=== PATIENT | male | born 1960 | race Caucasian/White ===

== ENCOUNTER 2016-12-16 22:15 | Inpatient (IN) | payer BC ==
[~2016-12-16] VITALS: Ht 175.3 cm; Wt 112.2 kg
[2016-12-16 22:49] LABS: HEMATOCRIT 43.7 % (38.0-50.0); MCH 31.5 PG (29.0-34.0); MCHC 33.6 G/DL (30.0-36.0); MCV 93.8 FL (86-99); MEAN PLAT.VOLUME 8.8 uM^3 (9.0-12.4); PLATELET COUNT 305 K/uL (156-360); RBC DIS.WIDTH-CV 12.4 % (11.8-14.6); RBC DIS.WIDTH-SD 42.5 % (39-53); RED BLOOD COUNT 4.66 M/uL (4.00-5.50); WHITE BLOOD COUNT 8.5 K/uL (4.1-10.2)
[2016-12-16 22:58] LABS: INTER. NORMALIZED RATIO 1.1; PROTHROMBIN TIME 10.7 (9.2-11.2); PTT 26.7 (25-32)
[2016-12-16 23:00] LABS: CHLORIDE 104 mEq/L (99-109); POTASSIUM 3.7 mEq/L (3.7-5.4); SODIUM 138 mEq/L (136-147)
[2016-12-16 23:01] LABS: GLUCOSE 133 mg/dL (70-99)
[2016-12-16 23:05] LABS: ANION GAP 16 MEQ/L (2-14); GFR ESTIMATE (CALCULATED) > 59 mL/min/
[2016-12-16 23:06] LABS: UREA NITROGEN (BUN) 11 mg/dL (9-23)
[2016-12-16 23:17] LABS: SERUM ETHYL ALCOHOL 159 mg/dL
[2016-12-16 23:22] LABS: TROP-I INTERPRETATION POSITIVE; TROPONIN-I 3.93 ng/mL (0.0-0.30)
[2016-12-17] MEDS ORDERED: TUMS500 MG PO (01:05)
[2016-12-17 02:26] LABS: TROP-I INTERPRETATION POSITIVE; TROPONIN-I 4.25 ng/mL (0.0-0.30)
[2016-12-17 05:56] LABS: HEMATOCRIT 43.8 % (38.0-50.0); MCH 31.7 PG (29.0-34.0); MCHC 33.8 G/DL (30.0-36.0); MCV 93.8 FL (86-99); MEAN PLAT.VOLUME 9.1 uM^3 (9.0-12.4); PLATELET COUNT 319 K/uL (156-360); RBC DIS.WIDTH-CV 12.5 % (11.8-14.6); RBC DIS.WIDTH-SD 43.1 % (39-53); RED BLOOD COUNT 4.67 M/uL (4.00-5.50)
[2016-12-17 05:57] LABS: WHITE BLOOD COUNT 5.5 K/uL (4.1-10.2)
[2016-12-17 18:00] VITALS: BP 133/84
[2016-12-17 18:15] VITALS: BP 125/78
[2016-12-17 19:20] VITALS: BP 130/73
[2016-12-17 20:49] LABS: Estimated Average Glucose 123 mg/dL (70-123); HEMOGLOBIN A1c (GLYCOHEMOGLOB) 5.9 % HGB (Below 5.7)
[2016-12-17 20:52] LABS: HDL CHOLESTEROL 39 MG/DL (Desirable>=40); NON-HDL CHOLESTEROL 195 mg/dL (Desirable<160); TOTAL CHOLESTEROL 234 mg/dL (Desirable<200); TRIGLYCERIDES 463 MG/DL (Normal: <150)
[2016-12-17 20:54] LABS: TROP-I INTERPRETATION POSITIVE; TROPONIN-I 3.21 ng/mL (0.0-0.30)
[2016-12-18 00:10] VITALS: BP 110/63
[2016-12-18 04:15] VITALS: BP 122/63
[2016-12-18 07:04] LABS: HEMATOCRIT 41.1 % (38.0-50.0); MCHC 32.1 G/DL (30.0-36.0); MCV 96.5 FL (86-99); PLATELET COUNT 250 K/uL (156-360); RBC DIS.WIDTH-CV 12.7 % (11.8-14.6); RBC DIS.WIDTH-SD 44.9 % (39-53); RED BLOOD COUNT 4.26 M/uL (4.00-5.50); WHITE BLOOD COUNT 6.6 K/uL (4.1-10.2)
[2016-12-18 07:27] LABS: ANION GAP 9 MEQ/L (2-14); CHLORIDE 106 MEQ/L (99-109); GFR ESTIMATE (CALCULATED) > 59 mL/min/; GLUCOSE 100 mg/dL (70-99); POTASSIUM 4.2 MEQ/L (3.7-5.4); SAMPLE HEMOLYSIS CHECK 0; SAMPLE ICTERIC CHECK 0; SAMPLE LIPEMIA CHECK 0; SODIUM 138 MEQ/L (136-147); TROP-I INTERPRETATION POSITIVE; TROPONIN-I 2.78 ng/mL (0.0-0.30); UREA NITROGEN (BUN) 14 mg/dL (9-23)
[2016-12-18 08:00] VITALS: BP 124/71
[2016-12-18] MEDS ORDERED: ATORVASTATIN CA40 MG PO (11:55)
[2016-12-18] MEDS ORDERED: NITROSTAT0.4 MG SL (11:55)
[2016-12-18] MEDS ORDERED: LOPRESSOR25 MG PO (11:56)
[2016-12-18] MEDS ORDERED: LISINOPRIL2.5 MG PO (11:56)
[2016-12-18 12:18] VITALS: BP 146/96
[2016-12-18] MEDS ORDERED: ATORVASTATIN CA80 MG PO (12:43)
[2016-12-18] MEDS ORDERED: EFFIENT10 MG PO (12:43)
[2016-12-18] MEDS ORDERED: ASPIR-LOW81 MG PO (12:43)
== END 2016-12-18 16:27 | disposition home or self-care (01) | DRG 247 ==
LOC: EME 22:15 → EDOF 12-17 03:27 → 4EAST 12-17 17:51
PROVIDERS: Emergency Medicine; Hospitalist; Internal Medicine Interventional Cardiology
DX: I21.4 Non-ST elevation (NSTEMI) myocardial infarction (principal); R73.9 Hyperglycemia, unspecified; E78.5 Hyperlipidemia, unspecified; F10.20 Alcohol dependence, uncomplicated; E66.9 Obesity, unspecified
CPT/HCPCS: 71010; 80048; 80061; 83036; 83735; 84484; 85027; 85347; 85610; 85730; 86900; 86901; 93005; 99281; 99285; C1725; C1769; C1874; C1887; C1894; G0480; J1644; J2250; J3010; J3411; J7030

== ENCOUNTER 2017-01-29 19:51 | Emergency (ER) | payer BC ==
[~2017-01-29] VITALS: Ht 172.7 cm; Wt 111.2 kg
[~2017-01-29 19:51] MED LIST: ASPIR-LOW81 MG PO; ATORVASTATIN CA40 MG PO; ATORVASTATIN CA80 MG PO; EFFIENT10 MG PO; LISINOPRIL2.5 MG PO; LOPRESSOR25 MG PO; NITROSTAT0.4 MG SL; TUMS500 MG PO
[2017-01-29 20:29] LABS: BASOPHIL COUNT 0.1 K/uL (0-0.1); EOSINOPHIL (%) 10.6 % (0-5); EOSINOPHIL COUNT 0.6 K/uL (0-0.3); HEMATOCRIT 38.6 % (38.0-50.0); IMMATURE GRANULOCYTE (%) 0.5 % (0.0-0.7); INSTRUMENT ABS NEUTROPHIL CT 2.4 K/uL; MCHC 34.2 G/DL (30.0-36.0); MCV 93.7 FL (86-99); MEAN PLAT.VOLUME 8.5 uM^3 (9.0-12.4); MONOCYTE COUNT 0.4 K/uL (0-0.8); NEUTROPHIL (%) 44.2 % (45-76); NEUTROPHIL COUNT 2.4 K/uL (1.8-6.4); PLATELET COUNT 269 K/uL (156-360); RBC DIS.WIDTH-CV 12.4 % (11.8-14.6); RED BLOOD COUNT 4.12 M/uL (4.00-5.50); WHITE BLOOD COUNT 5.5 K/uL (4.1-10.2)
[2017-01-29 20:41] LABS: CHLORIDE 101 mEq/L (99-109); POTASSIUM 3.5 mEq/L (3.7-5.4); SODIUM 134 mEq/L (136-147)
[2017-01-29 20:42] LABS: GLUCOSE 95 mg/dL (70-99)
[2017-01-29 20:44] LABS: ANION GAP 10 MEQ/L (2-14)
[2017-01-29 20:46] LABS: GFR ESTIMATE (CALCULATED) > 59 mL/min/; SERUM ETHYL ALCOHOL 203 mg/dL
[2017-01-29 20:47] LABS: UREA NITROGEN (BUN) 9 mg/dL (9-23)
[2017-01-29 20:50] LABS: TROP-I INTERPRETATION NEGATIVE; TROPONIN-I < 0.01 ng/mL (0.0-0.30)
[2017-01-29 23:28] LABS: TROP-I INTERPRETATION NEGATIVE; TROPONIN-I < 0.01 ng/mL (0.0-0.30)
[2017-01-30 00:58] VITALS: BP 107/61
== END 2017-01-30 00:59 | disposition home or self-care (01) ==
LOC: EME → EDBD 19:51 → EME 19:51
PROVIDERS: Emergency Medicine
DX: R55 Syncope and collapse (principal); I25.2 Old myocardial infarction; F17.200 Nicotine dependence, unspecified, uncomplicated; Z91.040 Latex allergy status
CPT/HCPCS: 71020; 80048; 84484; 85025; 93005; 99281; 99285; G0480; J7030